=== PATIENT | female | born 1995 | race Caucasian/White ===

== ENCOUNTER 2024-03-26 14:16 | Emergency (ER) | payer BC ==
[2024-03-26] MEDS ORDERED: Sodium Chloride 0.9% 10 ML Syringe FLUSH PRN (14:38)
[2024-03-26] MEDS: diphenhydrAMINE 50 MG/ML SDV IVPUSH ONE (15:11)
[2024-03-26] MEDS: Haloperidol Lactate 5 MG/ML SDV IVPUSH ONE (15:12)
[2024-03-26] MEDS: Sodium Chloride 0.9% 1,000 ML IV ONE (15:14)
[2024-03-26 15:29] LABS: BASOPHILS ABSOLUTE AUTO 0.1 K/mm3 (0.0-0.2); BASOPHILS PERCENT AUTO 0.8 % (0.0-1.0); EOSINOPHILS ABSOLUTE AUTO 0.1 K/mm3 (0.0-0.4); HEMATOCRIT 39.1 % (37.0-47.0); HEMOGLOBIN 13.4 gm/dl (12.0-16.0); IMMATURE GRAN ABSOLUTE AUTO 0.01 K/mm3 (0.00-0.05); IMMATURE GRAN PERCENT AUTO 0.2 % (0.0-0.4); LYMPHOCYTES ABSOLUTE AUTO 2.2 K/mm3 (1.0-4.8); LYMPHOCYTES PERCENT AUTO 36.9 % (24.0-44.0); MEAN CORPUSCULAR HEMOGLOBIN 28.7 pg (28.0-32.0); MEAN CORPUSCULAR HGB CONC 34.3 g/dl (32.0-36.0); MEAN CORPUSCULAR VOLUME 83.7 fl (83.0-99.0); MEAN PLATELET VOLUME 9.8 fl (9.4-12.3); MONOCYTES ABSOLUTE AUTO 0.3 K/mm3 (0.0-0.8); MONOCYTES PERCENT AUTO 5.1 % (0.0-8.0); NEUTROPHILS ABSOLUTE AUTO 3.4 K/mm3 (1.8-7.7); PLATELET COUNT,PLT 220 K/mm3 (150-400); RED BLOOD CELL COUNT 4.67 M/mm3 (4.10-5.30); WHITE BLOOD CELL COUNT,WBC 6.04 K/mm3 (3.9-11.3)
[2024-03-26 16:04] LABS: A/G RATIO 1.3 (1-2); ALBUMIN 4.3 g/dl (3.4-5.0); BILIRUBIN TOTAL 0.9 mg/dL (0.2-1.0); BUN/CREATININE RATIO 12.5 (14-18); CALCIUM 8.9 mg/dL (8.5-10.1); CREATININE 0.8 mg/dL (0.55-1.02); EST CRCL DRUG DOSING (CG) 100.87 mL/min; PROTEIN TOTAL,TP 7.5 g/dl (6.4-8.2)
== END 2024-03-26 17:35 | disposition home or self-care (01) ==
LOC: JD.ED 14:16
DX: R51.9 Headache, unspecified (principal); Z88.0 Allergy status to penicillin; Z88.1 Allergy status to other antibiotic agents; Z88.8 Allergy status to other drugs, medicaments and biological substances
CPT/HCPCS: 36415; 80053; 82947; 84703; 85025; 93005; 96361; 96374; 96375; 99284-25; J1200; J1630; J7030